=== PATIENT | female | born 1975 ===

== ENCOUNTER 2024-10-09 05:00 | Inpatient (IN) | payer OTHER ==
[2024-09-17 12:41] VITALS: BP 150/84
[~2024-10-09] VITALS: Ht 157.5 cm; Wt 81.6 kg
[~2024-10-09 05:00] MED LIST: AMBIEN10 MG PO; CLONAZEPAM0.5 M1 PO; FERROUS FUMARAT89 MG PO; SYNTHROID75 MCG PO; TRAZODONE HCL50 MG PO
[2024-10-09] MEDS ORDERED: POVIDONE-IODINE 118 ML BOTT TOP ONE ×2 (08:14→08:45)
[2024-10-09] MEDS ORDERED: BUPIVACAINE HCL/MPF 0.5% 30ML VIAL ONE (08:14)
[2024-10-09] MEDS ORDERED: LIDOCAINE HCL 1%/EPINEPHRINE 20ML VIAL IJ ONE ×2 (08:14→08:45)
[2024-10-09] MEDS ORDERED: CEFTRIAXONE SODIUM 2,000 MG VIAL ONE (08:15)
[2024-10-09] MEDS ORDERED: METRONIDAZOLE/SODIUM CHLORIDE 500 MG/100 ML PIGGYBACK IV ONE ×2 (08:15→08:45)
[2024-10-09] MEDS ORDERED: DIBUCAINE 30 GM TUBE ONE (08:21)
[2024-10-09] MEDS ORDERED: HEMOSTATIC MATRIX 1 KIT KIT TOP ONE ×2 (08:21→08:45)
[2024-10-09] MEDS ORDERED: DIBUCAINE 30 GM TUBE RECTAL ONE (08:45)
[2024-10-09] MEDS ORDERED: BUPIVACAINE HCL 30 ML VIAL IJ ONE (08:45)
[2024-10-09] MEDS ORDERED: CEFTRIAXONE SODIUM 2,000 MG VIAL IV ONE (08:45)
[2024-10-09] MEDS ORDERED: HYDROGEN PEROXIDE 473 ML BOTTLE TOP ONE (09:16)
[2024-10-09] MEDS ORDERED: HYDROGEN PEROXIDE 118 ML SOLUTION TOP ONE (09:30)
[2024-10-09] MEDS ORDERED: DEXTROSE 50 % IN WATER 0.5 G/ML DISP.SYRIN IV PRN (10:00)
[2024-10-09] MEDS ORDERED: MORPHINE SULFATE 4 MG/ML CARTRIDGE IV PRN (10:00)
[2024-10-09] MEDS ORDERED: ONDANSETRON HCL 2 MG/ML VIAL IV PRN (10:00)
[2024-10-09] MEDS ORDERED: RINGERS SOLUTION,LACTATED 1,000 ML IV SCH (10:00)
[2024-10-09] MEDS ORDERED: MORPHINE SULFATE 4 MG/ML VIAL IV ONE ×2 (10:35→11:35)
[2024-10-09 12:05] LABS: HEMATOCRIT 29.3 % (36.0-45.00); HEMOGLOBIN 9.1 g/dL (12.0-15.00); MEAN CELL VOLUME 74.4 fL (80.00-100.00); MEAN CORPUSCULAR HEMOGLOBIN 23.1 pg (27.00-32.0); PLATELET COUNT 433 K/uL (150-450); RED BLOOD COUNT 3.94 M/uL (4.00-6.00); RED CELL DISTRIBUTION WIDTH 17.3 % (11.5-14.5)
[2024-10-09 12:29] LABS: ALBUMIN 3.4 gm/dL (3.4-5.0); CALCIUM 8.8 mg/dL (8.5-10.1); CREATININE SERUM 0.45 mg/dL (0.55-1.02); GFR 148.09; MAGNESIUM 1.8 mg/dL (1.8-2.4); POTASSIUM 4.3 mEq/L (3.5-5.1)
[2024-10-09 13:25] VITALS: BP 109/70; O2SAT 96
[2024-10-09 16:00] VITALS: BP 113/68; O2SAT 98
[2024-10-09] MEDS ORDERED: FAMOTIDINE/PF 20 MG/2 ML VIAL IV PUSH SCH (21:00)
[2024-10-09 23:14] VITALS: BP 127/83; O2SAT 100
[2024-10-10] MEDS ORDERED: LEVOTHYROXINE SODIUM 75 MCG TABLET PO SCH (06:00)
[2024-10-10 07:50] LABS: ALBUMIN 3.2 gm/dL (3.4-5.0); CALCIUM 9.1 mg/dL (8.5-10.1); CREATININE SERUM 0.5 mg/dL (0.55-1.02); GFR 131.13; MAGNESIUM 2.1 mg/dL (1.8-2.4); PHOSPHOROUS 2.5 mg/dL (2.5-4.9); POTASSIUM 4.56 mEq/L (3.5-5.1)
[2024-10-10 08:14] VITALS: BP 108/66; O2SAT 96
[2024-10-10 08:28] LABS: HEMATOCRIT 26.9 % (36.0-45.00); MEAN CELL VOLUME 73.7 fL (80.00-100.00); MEAN CORPUSCULAR HGB CONC 32.5 g/dl (32.0-36.0); PLATELET COUNT 431 K/uL (150-450); RED BLOOD COUNT 3.64 M/uL (4.00-6.00); RED CELL DISTRIBUTION WIDTH 17.3 % (11.5-14.5)
[2024-10-10 08:41] LABS: HEMOGLOBIN 8.7 g/dL (12.0-15.00); MEAN CORPUSCULAR HEMOGLOBIN 23.9 pg (27.00-32.0)
[2024-10-10] MEDS ORDERED: INTESTINEX680 M1 PO (10:54)
[2024-10-10] MEDS ORDERED: PEPCID AC20 MG PO (10:54)
[2024-10-10] MEDS ORDERED: TRAM1TAB98 PO (10:54)
== END 2024-10-10 13:04 | disposition home or self-care (01) | DRG 349 ==
LOC: CIR.AMB 05:00 → SURH 10:29 → O/R 10:29 → SURH 11:58
PROVIDERS: ADMIT Surgery; ATTEND Surgery
PROC: 0DBP8ZZ Excision of Rectum, Via Natural or Artificial Opening Endoscopic (ICD-10-PCS; 2024-10-09)
PROC: 3E0T3BZ Introduction of Anesthetic Agent into Peripheral Nerves and Plexi, Percutaneous Approach (ICD-10-PCS; 2024-10-09)
PROC: 0DQQ8ZZ Repair Anus, Via Natural or Artificial Opening Endoscopic (ICD-10-PCS; principal; 2024-10-09 12:45)
DX: D12.8 Benign neoplasm of rectum (principal); K60.30 Anal fistula, unspecified; D37.5 Neoplasm of uncertain behavior of rectum; K62.82 Dysplasia of anus
CPT/HCPCS: 46270; 0184T; 64430; 45123